=== PATIENT | male | born 1990 | race Caucasian/White ===

== ENCOUNTER 2017-10-27 02:54 | Inpatient (IN) ==
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
[2017-10-27 08:27] LABS: Baso # (Auto) 0.2 th/mm3 (0.0-0.2); Baso % (Auto) 2.1 % (0.0-2.0); Eos # (Auto) 0.1 th/mm3 (0.0-0.4); Eos % (Auto) 0.8 % (0.0-4.0); Hematocrit 41.7 % (39.0-51.0); Hemoglobin 14.4 gm/dL (13.0-17.0); Lymph # (Auto) 2.8 th/mm3 (1.0-4.8); Lymph % (Auto) 33.4 % (9.0-44.0); Mean Corpuscular HGB Conc 34.4 % (32.0-36.0); Mean Corpuscular Hemoglobin 32.1 pg (27.0-34.0); Mean Corpuscular Volume 93.3 fL (80.0-100.0); Mean Platelet Volume 7.1 fL (7.0-11.0); Mono # (Auto) 0.6 th/mm3 (0.0-0.9); Mono % (Auto) 7.2 % (0.0-8.0); Neut # (Auto) 4.7 th/mm3 (1.8-7.7); Neut % (Auto) 56.5 % (16.0-70.0); Platelet Count 305 th/mm3 (150-450); Red Blood Count 4.47 mil/mm3 (4.50-5.90); Red Cell Distribution Width 14.2 % (11.6-17.2); White Blood Count 8.3 th/mm3 (4.0-11.0)
[2017-10-27 08:37] LABS: Amphetamine Screen,Urine Neg (Neg); Barbiturate Screen,Urine Neg (Neg); Cannabinoid Screen,Urine Pos (Neg); Cocaine Screen,Urine Pos (Neg)
[2017-10-27 08:43] LABS: Albumin 4.3 g/dL (3.4-5.0); Anion Gap 8 meq/L (5-15); Aspartate Aminotransferase 20 U/L (15-37); Blood Urea Nitrogen 7 mg/dL (7-18); Calcium 8.4 mg/dL (8.5-10.1); Carbon Dioxide 25.9 meq/L (21.0-32.0); Chloride 110 meq/L (98-107); Glomerular Filtration Rate 82 mL/min (>89); Glucose,Random 80 mg/dL (74-106); Potassium 3.8 meq/L (3.5-5.1); Sodium 144 meq/L (136-145)
[2017-10-27 08:44] LABS: Alanine Aminotransferase 15 U/L (12-78)
[2017-10-27 08:54] LABS: Alkaline Phosphatase 67 U/L (45-117); Thyroid Stimulating Hormone 0.868 uIU/mL (0.358-3.740); Total Protein 7.4 g/dL (6.4-8.2)
[2017-10-27 08:59] LABS: Alcohol 116 mg/dL (0-5)
[2017-10-27 08:59] LABS: Opiate Screen,Urine Neg (Neg)
[2017-10-27] MEDS ORDERED: Aluminum/Magnesium/Simethacone Susp 30 ML UDC PO PRN (12:51)
[2017-10-27] MEDS ORDERED: LORazepam 1 MG Tablet PO PRN (12:55)
--- NOTE | 2017-10-27 13:08 | P.HPPSY ---
Provisional Diagnosis Admission Date: October 27, 2017 02:54 Senath I.: 1. Bipolar disorder, presently depressed 2. Polysubstance abuse Senath II.: Deferred Competence Certification of Person's Competence To Provide Express and Informed Consent I have personally examined Rhys Rodriguez, a person being served at [facility] on, October 27, 2017 1256. Express and informed consent means consent voluntarily given in writing, by a competent person, after sufficient explanation and disclosure of the subject matter involved to enable the person to make a knowing and willful decision without any element of force, fraud, deceit, duress, or other form of constraint or coercion. This person is 18 years of age or older, is not now known to be incompetent to consent to treatment with a guardian advocate, and does not have a health care surrogate or proxy currently making medical treatment decisions. I have found this person to be one of the following: [X] Competent to provide express and informed consent, as defined above, for voluntary admission to this facility and is competent to provide express and informed consent for treatment. He/she has the consistent capacity to make well reasoned, willful, and knowing decisions concerning his or her medical or mental health treatment. The person fully and consistently understands the purpose of the admission for examination/placement and is fully capable of personally exercising all rights assured [place] Incompetent to provide express and informed consent to voluntary admission, and this is incompetent to provide express and informed consent to treatment. The person must be transferred to involuntary status and a petition for a guardian advocate filed with the Circuit Court. [] Refusing to provide express and informed consent to voluntary admission but is competent to provide express and informed consent for treatment. The person must be discharged or transferred to involuntary status. Form shall be completed within 24 hours of a person's arrival at the receiving facility and filed in the clinical record of each person: 1. Admitted on a voluntary basis 2. Permitted to provide express and informed consent to his/her own treatment 3. Allowed to transfer from involuntary to voluntary status 4. Prior to permitting a person to consent to his or her own treatment after having been previously found incompetent to consent to treatment. History of Present Illness Capacity: Has capacity Chief Complaint: Suicidal ideation History of Present Illness: Mr. Rodriguez is a 27-year-old male with a reported history of bipolar disorder versus schizophrenia who presented voluntarily for psychiatric evaluation. He told the ED provider that he was off of his scheduled psychotropic medications, using drugs and hearing voices. Patient's urine toxicology was positive for cocaine and cannabinoids and his alcohol level was 116 on presentation here. Reviewing the electronic medical record, I see no previous psychiatric contact within our system. Patient seen and examined. Chart reviewed. Case discussed with nursing staff. On my examination today, the patient says that he has been off of his psychotropic medications for 6 months. In the setting of medication nonadherence he has been feeling increasingly depressed and has been experiencing audiovisual hallucinations as well as suicidal ideation. He reports that the symptoms became particularly acute recently as he has tried to curtail his substance use. He says that he sees visual hallucinations of shadows and hears auditory hallucinations that are murmuring and occasionally deprecatory. He also endorses some vague paranoia and feels that people are after him. He endorses vague suicidal ideation and says "I do not want to live like this." He says that last night he was ready to end it. He denies any specific suicidal plan at this point and contracts for safety on the inpatient unit. Apparently, the patient initially presented as part of a suicide pact with another male who is presently also in the ED but will not be admitted to the inpatient psychiatric unit at [place]. Affect is somewhat dysphoric. Remainder of the psychiatric ROS is negative. No acute physical complaints except the patient does say that he has right upper dental abscess. Past psychiatric history: The patient reports previous diagnoses as noted above. He reports that he has done well in the past on Seroquel and lithium sometimes in combination with Wellbutrin. He denies a history of seizure or eating disorder. He does report a history of psychiatric admissions in [place] as well as [place]. He reports a history of previous suicide attempts by overdose. Family history: The patient reports that his father was addicted to crack cocaine. He denies a family history of serious mental illness. He reports that 2 of his cousins shot themselves. Chemical dependency history: The patient admits to recent use of cocaine and marijuana. He also drinks about 1/5 a day. He denies any history of DTs or seizures. Social history: The patient is originally from [place]. 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 He has a grade 10 education. Denies any access to guns or firearms. Has a history of DUI. Review of Systems All other systems reviewed negative except as stated in HPI [facility] - History History Provided By: Patient - Medical History Medical History: Medical History (Last Updated 10/27/17 @ 03:09 by Crystal Landa) Bipolar 1 disorder Depression PTSD (post-traumatic stress disorder) - Surgical History Surgical History: Surgical History (Last Updated 10/27/17 @ 03:09 by Crystal Landa) History of tonsillectomy and adenoidectomy - Tobacco History Second Hand Smoke Exposure: Yes Tobacco Use In Past 30 Days: Yes Smoking Status: Current every day smoker Tobacco Type: Cigarettes - Alcohol History How Often Do You Have a Drink Containing Alcohol: 2 to 4 times a month - Substance Use History Substance History: Active Abuse - Substance Use Type Crack/Cocaine Status: Active Route Used: Inhalation Last Used: monthly Reason for Use: Feels Good - Travel History Recent Travel in the [place] Within the Last 8 Weeks: No Recent Travel Out of the Country Within the Last 8 Weeks: No - Immunization History Tetanus Immunization: Unsure Hx Influenza Vaccine This Season: No Quality Measures - Psychiatric History Psychological trauma history: No reported history of trauma. - Patient Strengths Patient's strengths (minimum of 2): In a monitored setting. Verbally fluent. Medications and Allergies Active Medications: Active Medications Acetaminophen (Tylenol) 650 mg PO Q4H PRN PRN Reason: Pain 1-5 or Temp >101F Al Hydrox/Mg Hydrox/Simethicone (Mag-Al Plus Susp Liq) 30 ml PO Q6H PRN PRN Reason: DYSPEPSIA Al Hydroxide/Mg Hydroxide (Milk Of Magnesia Liq) 30 ml PO Q12H PRN PRN Reason: Mild Constipation Hydroxyzine HCl (Atarax) 50 mg PO Q6H PRN PRN Reason: ANXIETY [place] Carbonate ([place]brook Carbonate) 300 mg PO BID BERNIE Melatonin (Melatonin) 5 mg PO HS PRN PRN Reason: INSOMNIA Nicotine (Habitrol 21 Mg Patch.24 Hr) 1 patch T-DERMAL DAILY PRN PRN Reason: Nicotine craving Patch Removal (Remove Old Patch) 1 each T-DERMAL DAILY BERNIE Quetiapine Fumarate (Seroquel) 50 mg PO BID BERNIE Allergies Allergy/AdvReac Type Severity Reaction Status Date / Time No Known Allergies Allergy Verified 10/27/17 03:06 Home Medications Medication Instructions Recorded Confirmed Type No Known Home Medications 10/27/17 10/27/17 History Results - Labs CBC & Chem 7: 10/27/17 07:49 10/27/17 07:49 Labs: Laboratory Results - last 24 hr 10/27/17 10/27/17 10/27/17 07:45 07:49 07:49 WBC 8.3 RBC 4.47 L Hgb 14.4 Hct 41.7 MCV 93.3 MCH 32.1 MCHC 34.4 RDW 14.2 Plt Count 305 MPV 7.1 Neut % (Auto) 56.5 Lymph % (Auto) 33.4 [place] % (Auto) 7.2 Eos % (Auto) 0.8 Baso % (Auto) 2.1 H Neut # (Auto) 4.7 Lymph # (Auto) 2.8 [place] # (Auto) 0.6 Eos # (Auto) 0.1 Baso # (Auto) 0.2 WBC Differential . Differential Comment Auto diff final Sodium 144 Potassium 3.8 Chloride 110 H Carbon Dioxide 25.9 Anion Gap 8 BUN 7 Creatinine 1.09 Estimated GFR 82 L Random Glucose 80 Calcium 8.4 L Total Bilirubin 0.3 AST 20 ALT 15 Alkaline Phosphatase 67 Total Protein 7.4 Albumin 4.3 TSH 0.868 Salicylates Urine Opiates Screen Neg Acetaminophen Less than 2.0 L Ur Barbiturates Screen Neg Ur Amphetamines Screen Neg U Benzodiazepines Scrn Neg Urine Cocaine Screen Pos H U Cannabinoids Screen Pos H Serum Alcohol 116 H 10/27/17 10/27/17 07:49 10:05 WBC RBC Hgb Hct MCV MCH MCHC RDW Plt Count MPV Neut % (Auto) Lymph % (Auto) [place] % (Auto) Eos % (Auto) Baso % (Auto) Neut # (Auto) Lymph # (Auto) [place] # (Auto) Eos # (Auto) Baso # (Auto) WBC Differential Differential Comment Sodium Potassium Chloride Carbon Dioxide Anion Gap BUN Creatinine Estimated GFR Random Glucose Calcium Total Bilirubin AST ALT Alkaline Phosphatase Total Protein Albumin TSH Salicylates 3.1 2.6 L Urine Opiates Screen Acetaminophen Ur Barbiturates Screen Ur Amphetamines Screen U Benzodiazepines Scrn Urine Cocaine Screen U Cannabinoids Screen Serum Alcohol Labs reviewed. Besides toxicological information and mildly decreased GFR, no acute abnormalities noted. Exam Vital signs: Vital Signs 10/27/17 03:06 10/27/17 07:51 Temperature 98.0 F Pulse Rate 77 67 Respiratory Rate 18 18 Blood Pressure 118/61 115/73 Pulse Oximetry 99 97 Intake & Output 10/26/17 10/27/17 10/27/17 18:59 06:59 18:59 Weight 72.575 kg Narrative: Physical examination was completed by ED provider. On my examination today, the patient appears to be in no acute physical distress. No signs of intoxication or withdrawal noted. Labs and vital signs reviewed. Mental Status Examination Appearance: Disheveled Consciousness: Alert Orientation: x4 Motor Activity: Other (No motor abnormalities noted) Speech: Unremarkable Language: Adequate Fund of Knowledge: Adequate Attention and Concentration: Adequate Memory: Unremarkable (Grossly intact on clinical exam) Mood: Other (Dysphoric) Affect: Other (Restricted) Thought Process & Associations: Intact Thought Content: Hallucinations, Delusional Hallucination Type: Auditory (Reported. Does not appear internally stimulated. No reported command auditory hallucinations to hurt self/others.) Delusion Type: Paranoid Suicidal Ideation: Yes Suicidal Plan: No Suicidal Intention: No Homicidal Ideation: No Homicidal Plan: No Homicidal Intention: No Insight: Fair Judgment: Impulsive Assessment and Plan - Assessment (1) Bipolar affective disorder, depressed Code(s): F31.30 - Bipolar disorder, current episode depressed, mild or moderate severity, unspecified Status: Acute (2) Polysubstance abuse Code(s): F19.10 - Other psychoactive substance abuse, uncomplicated Status: Acute - Plan Plan: This is a 27-year-old male with psychiatric history as detailed above who presents voluntarily for psychiatric evaluation. On my examination today, the patient endorses ongoing low mood, hallucinations, paranoia and suicidal ideation. Although it is certainly possible that the patient's symptoms are substance induced or related to secondary gain for snf, given the gravity of his reported symptoms I think it is prudent to admit the patient to the inpatient psychiatric unit for monitoring for any impairments and safety. Admit inpatient. Involuntary status. I will start the patient on Seroquel 50 mg twice daily for mood stabilization as well as lithium 300 mg twice daily for the same purpose. We will plan to check a lithium level after the appropriate interval. Atarax as needed for anxiety. Melatonin as needed for sleep. R/P/A for medications discussed with patient including the metabolic and motor side effects of antipsychotic therapy as well as the risks to kidney and thyroid and need for therapeutic drug monitoring with the lithium. CIWA scale with Ativan for the management of any withdrawal. Thiamine and folate. Seizure precautions. Hospitalist consult for the dental pain, possible abscess. Vitals every shift. Counselor to see. Collateral information. Disposition planning. Justification for Continued Inpatient Stay: See above Discharge Planning: Pending psychiatric stabilization. Request Healthcare Surrogate/Guardian Advocate?: No
--- NOTE | 2017-10-27 14:51 | P.CONIM ---
History of Present Illness Service: Hospitalist Consult date: 10/27/17 Requesting Physician: Jerardo Morel Reason for Consult: Dental abscess Primary Care Provider: No Primary Care Physician History of Present Illness: 27 year old male with history of bipolar disorder vs. schizophrenia presenting voluntarily for psychiatric evaluation. The patient has been off of psychotropic medications for several months off an on and has since been having audiovisual hallucinations, suicidality, and depression. He admits to using drugs; his UDS is positive for marijuana and cocaine. He drinks EtOH daily and smokes about a pack of cigarettes a week. Hospitalist consulted for dental pain. Patient endorses pain around his tooth # 3 (upper right molar). The tooth is broken and sensitive to extremes in temperature. He also complains of pain in the gums around the affected tooth. He states he has symptoms about a week. He doesn't have a dentist. He denies fever, chills, drainage from the area, halitosis, throat pain, or neck stiffness. When asked about any other issues or medical problems he has been diagnosed with he states, "I'm just crazy I guess." Review of Systems All other systems reviewed negative except as stated in HPI PMFSH - History History Provided By: Patient - Medical History Medical History: Medical History (Last Reviewed 10/27/17 @ 14:47 by Susan Ashby MD) Bipolar 1 disorder Depression PTSD (post-traumatic stress disorder) - Surgical History Surgical History: Surgical History (Last Reviewed 10/27/17 @ 14:47 by Susan Ashby MD) History of tonsillectomy and adenoidectomy - Family History Family History: Family History (Last Updated 10/27/17 @ 14:48 by Susan Ashby MD) Father Substance abuse - Social History I have reviewed the patient's Social History: Yes - Tobacco History Second Hand Smoke Exposure: Yes Tobacco Use In Past 30 Days: Yes Smoking Status: Current every day smoker Tobacco Type: Cigarettes - Alcohol History How Often Do You Have a Drink Containing Alcohol: 2 to 4 times a month - Substance Use History Substance History: Active Abuse - Substance Use Type Crack/Cocaine Status: Active Route Used: Inhalation Last Used: monthly Reason for Use: Feels Good - Travel History Recent Travel in the [place] Within the Last 8 Weeks: No Recent Travel Out of the Country Within the Last 8 Weeks: No - Immunization History Tetanus Immunization: Unsure Hx Influenza Vaccine This Season: No Medications and Allergies Active Medications: Active Medications Acetaminophen (Tylenol) 650 mg PO Q4H PRN PRN Reason: Pain 1-5 or Temp >101F Al Hydrox/Mg Hydrox/Simethicone (Mag-Al Plus Susp Liq) 30 ml PO Q6H PRN PRN Reason: DYSPEPSIA Al Hydroxide/Mg Hydroxide (Milk Of Magnesia Liq) 30 ml PO Q12H PRN PRN Reason: Mild Constipation Flumazenil ([place]aze[place] Inj) 0.2 mg IV.PUSH Q1M PRN PRN Reason: OVERSEDATION Folic Acid (Folic Acid) 1 mg PO DAILY BERNIE Stop: 11/02/17 08:59 Hydroxyzine HCl (Atarax) 50 mg PO Q6H PRN PRN Reason: ANXIETY [place] Carbonate ([place] Carbonate) 300 mg PO BID BERNIE Lorazepam (Ativan) 1 mg PO Q4H PRN PRN Reason: for CIWA 8-10 Lorazepam (Ativan) 2 mg PO Q2H PRN PRN Reason: for CIWA 11-14 Lorazepam (Ativan Inj) 2 mg IV.PUSH Q2H PRN PRN Reason: for CIWA 11-14 Lorazepam (Ativan Inj) 2 mg IV.PUSH Q1H PRN PRN Reason: for CIWA 15-20 Lorazepam (Ativan Inj) 2 mg IV.PUSH Q15M PRN PRN Reason: for CIWA > 20 Lorazepam (Ativan Inj) 1 mg IV.PUSH Q4H PRN PRN Reason: for CIWA 8-10 Melatonin (Melatonin) 5 mg PO HS PRN PRN Reason: INSOMNIA Multivitamins/Minerals (Theragran-M) 1 tab PO DAILY [facility] Stop: 11/02/17 08:59 Nicotine (Habitrol 21 Mg Patch.24 Hr) 1 patch T-DERMAL DAILY PRN PRN Reason: Nicotine craving Patch Removal (Remove Old Patch) 1 each T-DERMAL DAILY [facility] Quetiapine Fumarate (Seroquel) 50 mg PO BID [facility] Thiamine HCl (Vitamin B1) 100 mg PO DAILY [facility] Allergies Allergy/AdvReac Type Severity Reaction Status Date / Time No Known Allergies Allergy Verified 10/27/17 03:06 Home Medications Medication Instructions Recorded Confirmed Type No Known Home Medications 10/27/17 10/27/17 History Exam Vital signs: Vital Signs 10/27/17 03:06 10/27/17 07:51 Temperature 98.0 F Pulse Rate 77 67 Respiratory Rate 18 18 Blood Pressure 118/61 115/73 Pulse Oximetry 99 97 Intake & Output 10/26/17 10/27/17 10/27/17 18:59 06:59 18:59 Weight 72.575 kg Narrative: GENERAL: WN, WD male ambulating the floor in [facility]. SKIN: Warm and dry. HEENT: Partially broken tooth #3 with obvious cavity. No visible abscess or drainage. Surrounding gum is erythematous and tender. NECK: Supple no tender LAD or neck stiffness. HEART: RRR no m/r/g. LUNGS: CTAB without wheezes or crackles. NEURO: Awake and alert. Results - Labs CBC & Chem 7: 10/27/17 07:49 10/27/17 07:49 Labs: Laboratory Results - last 24 hr 10/27/17 10/27/17 10/27/17 07:45 07:49 07:49 WBC 8.3 RBC 4.47 L Hgb 14.4 Hct 41.7 MCV 93.3 MCH 32.1 MCHC 34.4 RDW 14.2 Plt Count 305 MPV 7.1 Neut % (Auto) 56.5 Lymph % (Auto) 33.4 [place] % (Auto) 7.2 Eos % (Auto) 0.8 Baso % (Auto) 2.1 H Neut # (Auto) 4.7 Lymph # (Auto) 2.8 [place] # (Auto) 0.6 Eos # (Auto) 0.1 Baso # (Auto) 0.2 WBC Differential . Differential Comment Auto diff final Sodium 144 Potassium 3.8 Chloride 110 H Carbon Dioxide 25.9 Anion Gap 8 BUN 7 Creatinine 1.09 Estimated GFR 82 L Random Glucose 80 Calcium 8.4 L Total Bilirubin 0.3 AST 20 ALT 15 Alkaline Phosphatase 67 Total Protein 7.4 Albumin 4.3 TSH 0.868 Salicylates Urine Opiates Screen Neg Acetaminophen Less than 2.0 L Ur Barbiturates Screen Neg Ur Amphetamines Screen Neg U Benzodiazepines Scrn Neg Urine Cocaine Screen Pos H U Cannabinoids Screen Pos H Serum Alcohol 116 H 10/27/17 10/27/17 07:49 10:05 WBC RBC Hgb Hct MCV MCH MCHC RDW Plt Count MPV Neut % (Auto) Lymph % (Auto) [place] % (Auto) Eos % (Auto) Baso % (Auto) Neut # (Auto) Lymph # (Auto) [place] # (Auto) Eos # (Auto) Baso # (Auto) WBC Differential Differential Comment Sodium Potassium Chloride Carbon Dioxide Anion Gap BUN Creatinine Estimated GFR Random Glucose Calcium Total Bilirubin AST ALT Alkaline Phosphatase Total Protein Albumin TSH Salicylates 3.1 2.6 L Urine Opiates Screen Acetaminophen Ur Barbiturates Screen Ur Amphetamines Screen U Benzodiazepines Scrn Urine Cocaine Screen U Cannabinoids Screen Serum Alcohol Assessment and Plan - Assessment (1) Dental cavity Code(s): K02.9 - Dental caries, unspecified Status: Acute (2) Gingivitis Code(s): K05.10 - Chronic gingivitis, plaque induced Status: Acute (3) Broken tooth Code(s): S02.5XXA - Fracture of tooth (traumatic), initial encounter for closed fracture Status: Acute - Plan 27 year old male with h/o bipolar disorder vs. schizophrenia admitted to psych voluntarily for audiovisual hallucinations, depression, and suicidal ideations. Hospitalist consulted as patient complained of dental pain. 1. Tooth #3 fracture and cavity with gingivitis - No leukocytosis or fever - Recommend 7 day course of Augmentin - Chlorhexidine rinse BID - Tylenol #3 PRN - Advised patient to f/u with dentist upon discharge 2. Schizophrenia - Management per psych 3. EtOH abuse - CIWA protocol - Thiamine and folate - Seizure precautions DVT prophylaxis: ambulatory Thank you for this consultation. Will sign off at this time. Please reconsult if needed. Discussed Condition With: Patient
[2017-10-27] MEDS ORDERED: Acetaminophen/Codeine 300/30 MG Tablet PO PRN (15:28)
[2017-10-27] MEDS: Amoxicillin/Clavulanate 875/125 MG Tablet PO SCH ×2 (16:27→21:17)
[2017-10-27] MEDS ORDERED: Chlorhexidine 0.12% Oral Kit 15 ML UDC OROPHARYNG SCH (20:00)
[2017-10-27] MEDS: QUEtiapine 25 MG Tablet PO SCH (21:17)
[2017-10-27] MEDS: Chlorhexidine Gluconate 0.12% Liq 15 ML UDC OROPHARYNG SCH (22:26)
[2017-10-28] MEDS: Acetaminophen 325 MG Tablet PO PRN (04:38)
[2017-10-28] MEDS: QUEtiapine 25 MG Tablet PO SCH ×2 (10:18→20:51)
[2017-10-28] MEDS: Chlorhexidine Gluconate 0.12% Liq 15 ML UDC OROPHARYNG SCH ×2 (10:18→22:19)
[2017-10-28] MEDS: Multivitamin/Minerals Therapeutic Tablet PO SCH (10:18)
[2017-10-28] MEDS: Folic Acid 1 MG Tablet PO SCH (10:18)
[2017-10-28] MEDS: Amoxicillin/Clavulanate 875/125 MG Tablet PO SCH ×2 (10:18→20:50)
[2017-10-28 10:32] LABS: Calcium 8.6 mg/dL (8.5-10.1); Carbon Dioxide 26.6 meq/L (21.0-32.0); Potassium 4.3 meq/L (3.5-5.1)
[2017-10-28 10:35] LABS: Chol/HDL Ratio 2.75 Ratio
[2017-10-28 13:00] LABS: Hemoglobin A1c 5.6 % (4.3-6.0)
--- NOTE | 2017-10-28 13:35 | P.PNPSY ---
Subjective Chief Complaint: Suicidal ideation Remarks: Patient seen and examined with nurse. Chart reviewed. Case discussed with nursing staff. Patient scoring minimally on CIWA scale. He has no signs of withdrawal on my exam today. Complaining of tooth pain. Patient already seen by the hospitalist for this. Case discussed with counselor. On my examination today, the patient presents as a somewhat manipulative historian. Some degree of symptom exaggeration is suspected. He claims to hear auditory hallucinations telling him to hurt nonspecific people and himself, although he does not appear at all internally stimulated. Affect is somewhat dysphoric. He denies any actual urge to hurt himself or others, saying that he is merely hearing these voices. Denies side effects from medications. Besides the tooth pain, no physical complaints. Vital Signs Temp Pulse Resp BP Pulse Ox 10/28/17 11:17 97.8 F 62 17 109/60 96 10/28/17 06:00 97.5 F L 70 17 122/83 95 10/27/17 18:00 97.7 F 71 16 104/60 10/27/17 15:05 97.1 F L 62 18 119/58 L Intake and Output 10/27/17 10/28/17 10/28/17 22:59 06:59 14:59 Other: Weight 72.8 kg Weight On Admission 72.8 kg Laboratory Results - last 24 hr 10/28/17 10/28/17 09:10 09:10 Sodium 141 Potassium 4.3 Chloride 105 Carbon Dioxide 26.6 Anion Gap 9 BUN 13 Creatinine 1.20 Estimated GFR 73 L Random Glucose 79 Hemoglobin A1c 5.6 Calcium 8.6 Triglycerides 114 Cholesterol 110 L LDL Cholesterol, Calc 47 HDL Cholesterol 40.0 Cholesterol/HDL Ratio 2.75 Labs reviewed. Decreased GFR noted. EKG reviewed. Review of Systems All other systems reviewed negative except as stated in HPI Mental Status Examination Appearance: Disheveled Consciousness: Alert Orientation: x4 Motor Activity: Other (No abnormal motor movements noted) Speech: Unremarkable Language: Adequate Fund of Knowledge: Adequate Attention and Concentration: Adequate Memory: Unremarkable (Grossly intact on clinical exam) Mood: Other (Remains dysphoric) Affect: Other (Restricted) Thought Process & Associations: Intact Thought Content: Hallucinations Hallucination Type: Auditory, Command, Other (Does not appear internally stimulated) Delusion Type: None Suicidal Ideation: No Suicidal Plan: No Suicidal Intention: No Homicidal Ideation: No Homicidal Plan: No Homicidal Intention: No Insight: Fair Judgment: Impulsive Assessment and Plan - Assessment (1) Bipolar affective disorder, depressed Code(s): F31.30 - Bipolar disorder, current episode depressed, mild or moderate severity, unspecified Status: Acute (2) Polysubstance abuse Code(s): F19.10 - Other psychoactive substance abuse, uncomplicated Status: Acute - Plan Plan: Titrate Seroquel to 100 mg twice daily for mood stabilization. Continue lithium as ordered. Plan to check a lithium level later in the week. Trend GFR as lithium therapy may need to be adjusted or discontinued if the patient's renal function becomes too impaired. I will add topical anesthetic for patient' s complaints of tooth pain. Hospitalist input noted and appreciated. Continue to monitor on the inpatient unit. Continue other medications and care as ordered. Justification for Continued Inpatient Stay: Medication changes. Risk for decompensation in less restrictive environment. Discharge Planning: Pending psychiatric stabilization. Anticipate discharge by the end of the week. Request Healthcare Surrogate/Guardian Advocate?: No
--- NOTE | 2017-10-28 19:03 | ECG ---
Date Performed: 10/27/2017 Time Performed: 16:37:18 PTAGE: 27 years EKG: Sinus rhythm WITH FREQUENT SUPRAVENTRICULAR PREMATURE COMPLEXES POSSIBLE RIGHT VENTRICULAR CONDUCTION DELAY ABNOR MAL RHYTHM ECG NO PREVIOUS TRACING DOCTOR: Chastity Santiago Interpretating Date/Time 10/28/2017 19:02:50
[2017-10-29 07:33] LABS: Potassium 4.2 meq/L (3.5-5.1)
[2017-10-29 07:37] LABS: Carbon Dioxide 28.8 meq/L (21.0-32.0)
[2017-10-29] MEDS: Multivitamin/Minerals Therapeutic Tablet PO SCH (09:05)
[2017-10-29] MEDS: Folic Acid 1 MG Tablet PO SCH (09:05)
[2017-10-29] MEDS: Amoxicillin/Clavulanate 875/125 MG Tablet PO SCH ×2 (09:05→21:03)
[2017-10-29] MEDS: QUEtiapine 25 MG Tablet PO SCH (09:06)
[2017-10-29] MEDS: Chlorhexidine Gluconate 0.12% Liq 15 ML UDC OROPHARYNG SCH ×2 (09:53→22:36)
--- NOTE | 2017-10-29 15:21 | P.PNPSY ---
Subjective Chief Complaint: Suicidal ideation Remarks: Patient seen and examined with nurse. Chart reviewed. Case discussed with nursing staff. Patient noted to be more cooperative today. Case discussed in treatment team. On my examination today, the patient says that the medications are starting to help with his voices. He says that these are no more than "murmurs" now. He does complain of ongoing anxiety and says that his mood remains "temperamental and snappy." He denies side effects from medications besides some mild tiredness. We discuss replacing the bulk of the Seroquel dose at night as we are titrating this medication to manage this side effect. Patient is also requesting something additional for anxiety and we discuss among other options the off label use of gabapentin. No physical complaints. Patient notes the dental pain is improved. Vital Signs Temp Pulse Resp BP Pulse Ox 10/29/17 06:00 97.4 F L 53 L 18 113/59 L 93 L Laboratory Results - last 24 hr 10/29/17 05:55 Sodium 142 Potassium 4.2 Chloride 106 Carbon Dioxide 28.8 Anion Gap 7 BUN 16 Creatinine 1.16 Estimated GFR 76 L Random Glucose 83 Calcium 9.0 Labs reviewed. Renal function stable. Review of Systems All other systems reviewed negative except as stated in HPI Mental Status Examination Appearance: Other (Fair) Consciousness: Alert Orientation: x4 Motor Activity: Other (No motor abnormalities noted) Speech: Unremarkable Language: Adequate Fund of Knowledge: Adequate Attention and Concentration: Adequate Memory: Unremarkable (Grossly intact on clinical exam) Mood: Other ("Temperamental, snappy") Affect: Other (Less dysphoric today) Thought Process & Associations: Intact Thought Content: Hallucinations Hallucination Type: Auditory (Murmurs) Delusion Type: None Suicidal Ideation: No Suicidal Plan: No Suicidal Intention: No Homicidal Ideation: No Homicidal Plan: No Homicidal Intention: No Insight: Fair Judgment: Impulsive Assessment and Plan - Assessment (1) Bipolar affective disorder, depressed Code(s): F31.30 - Bipolar disorder, current episode depressed, mild or moderate severity, unspecified Status: Acute (2) Polysubstance abuse Code(s): F19.10 - Other psychoactive substance abuse, uncomplicated Status: Acute - Plan Plan: Titrate Seroquel to 100 mg in the morning and 200 mg at bedtime for further mood stabilization and for reported psychotic symptoms. Continue lithium as ordered and plan to check a lithium and BMP on morning. Continue to monitor on the inpatient unit. Continue other medications and care as ordered. Justification for Continued Inpatient Stay: Medication changes. Risk for decompensation in less restrictive environment. Discharge Planning: Pending psychiatric stabilization. Request Healthcare Surrogate/Guardian Advocate?: No
--- NOTE | 2017-10-29 15:34 | P.TTN ---
- Patient Problems Problems: 1. Discharge planning 2. Medication compliance 3. Knowledge deficit 4. Lack of coping skills - Progress Toward Goals Provider Present: Dr. Xochitl Morel (History of Substance abuse and presented homeless ) Nurse Input: [place]: at times bizarre , reported to have acted out, has some thoughts of suicide, but overall compliant Psychiatric Counselors Present: Peggy Canales LCSW (shares with counselor today he has a girlfriend in [place] and he would like to go there, if his phone is with him he would like to call her- no cell phone came in, then he states he will be fine and work it out if he can just go and get medications once he is being discharged- he plans on finding his way to [place] and locate his cell phone ) Group Spec/RT/OT/TRINIDAD Present: VIVI Staples (minimal engaging ) - Documentation Teaching Recipient: Patient
[2017-10-29] MEDS: Gabapentin 100 MG Capsule PO SCH (21:01)
[2017-10-29] MEDS: Melatonin 5 MG Tablet PO PRN (21:05)
[2017-10-29] MEDS: Acetaminophen 325 MG Tablet PO PRN (21:31)
[2017-10-30] MEDS: Amoxicillin/Clavulanate 875/125 MG Tablet PO SCH ×2 (08:22→21:06)
[2017-10-30] MEDS: Multivitamin/Minerals Therapeutic Tablet PO SCH (08:23)
[2017-10-30] MEDS: Gabapentin 100 MG Capsule PO SCH ×3 (08:23→21:06)
[2017-10-30] MEDS: QUEtiapine 100 MG Tablet PO SCH (08:23)
[2017-10-30] MEDS: Folic Acid 1 MG Tablet PO SCH (08:23)
[2017-10-30] MEDS: Chlorhexidine Gluconate 0.12% Liq 15 ML UDC OROPHARYNG SCH ×2 (08:45→21:09)
--- NOTE | 2017-10-30 12:57 | P.PNPSY ---
Subjective Chief Complaint: Suicidal ideation Remarks: Patient seen and examined with nurse. Chart reviewed. Case discussed with nursing staff. No behavioral issues noted overnight. On my exam, patient says that he feels like he is improving. Auditory hallucinations continued to decrease. Mood is improving. He denies SI or HI. Continues to complain of some anxiety and we discuss titrating his gabapentin. Denies side effects from medications. No physical complaints. Vital Signs Temp Pulse Resp BP Pulse Ox 10/30/17 06:07 97.5 F L 79 15 104/56 L 96 10/30/17 06:00 97.5 F L 79 15 104/56 L 96 Intake and Output 10/30/17 10/30/17 10/30/17 06:59 14:59 22:59 Intake Total 720 / 720 Balance 720 / 720 Intake: Oral 720 / 720 Labs reviewed. No new labs. Review of Systems All other systems reviewed negative except as stated in HPI Mental Status Examination Appearance: Other (Fair) Consciousness: Alert Orientation: x4 Motor Activity: Other (No abnormal motor movements noted) Speech: Unremarkable Language: Adequate Fund of Knowledge: Adequate Attention and Concentration: Adequate Memory: Unremarkable (Grossly intact on clinical exam) Mood: Appropriate Affect: Blunt Thought Process & Associations: Intact Thought Content: Hallucinations Hallucination Type: Auditory (Minimal) Delusion Type: None Suicidal Ideation: No Suicidal Plan: No Suicidal Intention: No Homicidal Ideation: No Homicidal Plan: No Homicidal Intention: No Insight: Fair Judgment: Impulsive Assessment and Plan - Assessment (1) Bipolar affective disorder, depressed Code(s): F31.30 - Bipolar disorder, current episode depressed, mild or moderate severity, unspecified Status: Acute (2) Polysubstance abuse Code(s): F19.10 - Other psychoactive substance abuse, uncomplicated Status: Acute - Plan Plan: Titrate gabapentin to 200 mg 3 times daily. Continue lithium as ordered and plan to check a lithium level tomorrow. Continue Seroquel as ordered. Continue to monitor on the inpatient unit. Continue other medications and care as ordered. Justification for Continued Inpatient Stay: Medication changes. Risk for decompensation in less restrictive environment. Discharge Planning: Pending psychiatric stabilization. Request Healthcare Surrogate/Guardian Advocate?: No
[2017-10-31 06:14] VITALS: O2SAT 95
[2017-10-31 06:52] LABS: Anion Gap 8 meq/L (5-15); Blood Urea Nitrogen 20 mg/dL (7-18); Calcium 8.8 mg/dL (8.5-10.1); Chloride 106 meq/L (98-107); Glomerular Filtration Rate Greater Than 89 mL/min (>89); Glucose,Random 84 mg/dL (74-106); Potassium 4.1 meq/L (3.5-5.1); Sodium 140 meq/L (136-145)
[2017-10-31] MEDS: Folic Acid 1 MG Tablet PO SCH (08:10)
[2017-10-31] MEDS: Chlorhexidine Gluconate 0.12% Liq 15 ML UDC OROPHARYNG SCH ×2 (08:11→20:00)
[2017-10-31] MEDS: Gabapentin 100 MG Capsule PO SCH ×3 (08:11→21:11)
[2017-10-31] MEDS: Multivitamin/Minerals Therapeutic Tablet PO SCH (08:12)
[2017-10-31] MEDS: Amoxicillin/Clavulanate 875/125 MG Tablet PO SCH ×2 (08:12→21:09)
[2017-10-31] MEDS: QUEtiapine 100 MG Tablet PO SCH (08:12)
--- NOTE | 2017-10-31 13:55 | P.PNPSY ---
Subjective Chief Complaint: Suicidal ideation Remarks: Patient seen and examined with nurse. Chart reviewed. Case discussed with nursing staff. No behavioral issues noted overnight. Case discussed with counselor who is working with patient on discharge planning. On my examination today, the patient reports some mild residual auditory hallucinations of murmuring and visual hallucinations of shadows. He does say that these usually remit with medication treatment. He denies any suicidal or homicidal ideation. Mood is stabilizing nicely. He is hopeful for discharge soon. No side effects from medications. We discuss medication changes and also patient's lithium level. Patient would like to titrate his Seroquel little bit more at night and is agreeable to lithium titration to bring the level within the therapeutic range. No acute physical complaints. Vital Signs Temp Pulse Resp BP Pulse Ox 10/31/17 07:21 97.7 F 56 L 16 101/51 L 95 10/31/17 06:00 97.7 F 56 L 16 101/51 L 95 10/30/17 20:00 98.4 F 55 L 16 114/64 98 Laboratory Results - last 24 hr 10/31/17 10/31/17 05:45 05:45 Sodium 140 Potassium 4.1 Chloride 106 Carbon Dioxide 26.0 Anion Gap 8 BUN 20 H Creatinine 0.95 Estimated GFR Greater than 89 Random Glucose 84 Calcium 8.8 [place] 0.2 L Labs reviewed. [place] level subtherapeutic. GFR within normal limits. Review of Systems All other systems reviewed negative except as stated in HPI Mental Status Examination Appearance: Appropriate Consciousness: Alert Orientation: x4 Motor Activity: Other (No motoric abnormalities noted) Speech: Unremarkable Language: Adequate Fund of Knowledge: Adequate Attention and Concentration: Adequate Memory: Unremarkable (Grossly intact on clinical exam) Mood: Appropriate Affect: Appropriate Thought Process & Associations: Intact Thought Content: Hallucinations Hallucination Type: Auditory (Noncommand, murmuring), Visual (Mild) Delusion Type: None Suicidal Ideation: No Suicidal Plan: No Suicidal Intention: No Homicidal Ideation: No Homicidal Plan: No Homicidal Intention: No Mental Status Exam Remarks: Insight and judgment are fair Assessment and Plan - Assessment (1) Bipolar affective disorder, depressed Code(s): F31.30 - Bipolar disorder, current episode depressed, mild or moderate severity, unspecified Status: Acute (2) Polysubstance abuse Code(s): F19.10 - Other psychoactive substance abuse, uncomplicated Status: Acute - Plan Plan: Titrate Seroquel to 100 mg in the morning and 300 mg at bedtime to target residual reported psychotic symptoms. Titrate lithium to 300 mg 3 times daily to try to bring the level within the therapeutic range. Plan to obtain follow- up lithium level, probably on an outpatient basis. Continue to monitor on the inpatient unit. Continue other medications and care as ordered. Justification for Continued Inpatient Stay: Medication changes Discharge Planning: Possible discharge tomorrow, Saturday Request Healthcare Surrogate/Guardian Advocate?: No
[2017-10-31 19:24] VITALS: RESP 18; TEMP 97.3
[2017-10-31] MEDS: Melatonin 5 MG Tablet PO PRN (21:12)
[2017-11-01 06:21] VITALS: BP 115/67; PULSE 70
[2017-11-01] MEDS: QUEtiapine 100 MG Tablet PO SCH (08:16)
[2017-11-01] MEDS: Folic Acid 1 MG Tablet PO SCH (08:16)
[2017-11-01] MEDS: Gabapentin 100 MG Capsule PO SCH (08:16)
[2017-11-01] MEDS: Multivitamin/Minerals Therapeutic Tablet PO SCH (08:16)
--- NOTE | 2017-11-01 09:07 | P.DSPSY ---
Psychiatry Discharge Summary Inpatient Psychiatric care?: Yes Advance Directives: No Mental Health Advance Directive: No Health Care Proxy: No - Admission Admission Date: October 27, 2017 12:50 - Admission Diagnosis (1) Bipolar affective disorder, depressed Code(s): F31.30 - Bipolar disorder, current episode depressed, mild or moderate severity, unspecified (2) Polysubstance abuse Code(s): F19.10 - Other psychoactive substance abuse, uncomplicated Brief History: Mr. Rodriguez is a 27-year-old male with a reported history of bipolar disorder versus schizophrenia who presented voluntarily for psychiatric evaluation. He told the ED provider that he was off of his scheduled psychotropic medications, using drugs and hearing voices. Patient's urine toxicology was positive for cocaine and cannabinoids and his alcohol level was 116 on presentation here. Reviewing the electronic medical record, I see no previous psychiatric contact within our system. Patient seen and examined. Chart reviewed. Case discussed with nursing staff. On my examination today, the patient says that he has been off of his psychotropic medications for 6 months. In the setting of medication nonadherence he has been feeling increasingly depressed and has been experiencing audiovisual hallucinations as well as suicidal ideation. He reports that the symptoms became particularly acute recently as he has tried to curtail his substance use. He says that he sees visual hallucinations of shadows and hears auditory hallucinations that are murmuring and occasionally deprecatory. He also endorses some vague paranoia and feels that people are after him. He endorses vague suicidal ideation and says "I do not want to live like this." He says that last night he was ready to end it. He denies any specific suicidal plan at this point and contracts for safety on the inpatient unit. Apparently, the patient initially presented as part of a suicide pact with another male who is presently also in the ED but will not be admitted to the inpatient psychiatric unit at [facility]. Affect is somewhat dysphoric. Remainder of the psychiatric ROS is negative. No acute physical complaints except the patient does say that he has right upper dental abscess. Past psychiatric history: The patient reports previous diagnoses as noted above. He reports that he has done well in the past on Seroquel and lithium sometimes in combination with Wellbutrin. He denies a history of seizure or eating disorder. He does report a history of psychiatric admissions in [place] as well as [place]. He reports a history of previous suicide attempts by overdose. Family history: The patient reports that his father was addicted to crack cocaine. He denies a family history of serious mental illness. He reports that 2 of his cousins shot themselves. Chemical dependency history: The patient admits to recent use of cocaine and marijuana. He also drinks about 1/5 a day. He denies any history of DTs or seizures. Social history: The patient is originally from [place]. 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 He has a grade 10 education. Denies any access to guns or firearms. Has a history of DUI. Tobacco Use In Past 30 Days: Yes How Often Do You Have a Drink Containing Alcohol: Monthly or less Hospital Course: Patient was admitted to a locked, inpatient psychiatric unit. A general medical consultation was obtained. Appropriate precautions were in place throughout patient's hospital stay. Patient was seen and examined on the unit by psychiatry and also visited by counselor. Psychotropic medications were adjusted. Patient tolerated medication changes well without side effects. Patient had improvement in presenting psychiatric symptomatology during the course of his hospital stay. There was no evidence of any suicidality or homicidality on the inpatient unit. There was no evidence of self-care deficit. Patient was noted to be entitled by staff. On the day of discharge: Patient seen and examined with nurse and counselor. Chart reviewed. Case discussed with nursing staff. Patient was apparently found trying to pick the lock the 2600 unit and 2500 unit. He was thereafter transferred to the 2700 unit for closer monitoring. Otherwise, the patient presented no behavioral problem. Case discussed in treatment team. On my examination today , the patient tells me that he tried to pick the lock because he was "bored." I am inclined to take him at his word in this regard. He is requesting discharge from the inpatient psychiatric unit today. He denies any suicidal or homicidal ideation, intent or plan. I can elicit no depressive or hypomanic/ manic symptoms. He denies any audiovisual hallucinations. I can elicit no delusional material. He denies any side effects from medications. I have educated the patient on the need for follow-up lithium level. No physical complaints. Suicide and violence risk assessment on day of discharge both suggest lower imminent risk from mental illness and the patient's level of function is adequate for outpatient care. Patient will be discharged today with follow-up as arranged by counselor. Patient is also to follow up with primary care and with dentistry. I have counseled the patient to abstain from substances of abuse. I have counseled the patient regarding warning signs for need to return to the psychiatric emergency room as part of a general safety plan. With the benefit of observation on the inpatient unit, some degree of malingering for group home is felt to be possible in the present case. - Discharge Discharge Date: 11/01/17 - Discharge Diagnosis (1) Bipolar disorder, in full remission, most recent episode depressed Diagnosis: Principal Code(s): F31.76 - Bipolar disorder, in full remission, most recent episode depressed Status: Acute (2) Polysubstance abuse Diagnosis: Secondary Code(s): F19.10 - Other psychoactive substance abuse, uncomplicated Status: Chronic Discharge Disposition: See counselor's notes - Discharge Instructions Discharge Diet: Regular Diet Activities You Can Perform: Weight Bearing As Tolerat - Discharge Time <= 30 minutes Mental Status Examination Appearance: Appropriate Consciousness: Alert Orientation: x4 Motor Activity: Normal gait, Other (No abnormal motor movements noted) Speech: Unremarkable Language: Adequate Fund of Knowledge: Adequate Attention and Concentration: Adequate Memory: Unremarkable (Grossly intact on clinical exam) Mood: Appropriate Affect: Appropriate Thought Process & Associations: Intact, Logical, Goal directed, Linear Thought Content: Appropriate Hallucination Type: None Delusion Type: None Suicidal Ideation: No Suicidal Plan: No Suicidal Intention: No Homicidal Ideation: No Homicidal Plan: No Homicidal Intention: No Insight: Fair Judgment: Impulsive (Likely chronic condition) Discharge/Advance Care Plan - Results Vital Signs: Last Vital Signs Temp 97.3 F L 11/01/17 06:21 Pulse 70 11/01/17 06:21 Resp 18 10/31/17 19:23 BP 115/67 11/01/17 06:21 Pulse Ox 95 10/31/17 19:23 Lab Results: Laboratory Results Hemoglobin A1c 5.6 % (4.3-6.0) 10/28/17 09:10 Triglycerides 114 mg/dL (42-150) 10/28/17 09:10 Cholesterol 110 mg/dL (120-200) L 10/28/17 09:10 LDL Cholesterol, Calc 47 mg/dL (0-99) 10/28/17 09:10 HDL Cholesterol 40.0 mg/dL (40.0-60.0) 10/28/17 09:10 TSH 0.868 uIU/mL (0.358-3.740) 10/27/17 07:49 [place]reth 0.2 meq/L (0.5-1.5) L 10/31/17 05:45 Summary of Procedures: None done Pending Results: None - Medications Number of antipsychotic medications at discharge: 1 - Discharge Care Plan Goals to Promote Your Health: * To prevent worsening of your condition and complications * To maintain your health at the optimal level Directions to Meet Your Goals: Take your medications as prescribed Follow your dietary instruction Follow activity as directed Keep your appointments as scheduled Take your immunizations and boosters as scheduled If your symptoms worsen call your PCP, if no PCP go to Urgent Care Center or Emergency Room For 03/09 questions related to your inpatient stay or results of tests pending at discharge, please contact Dr. Jerardo Morel MD at [phone] Smoking is Dangerous to Your Health. Avoid second hand smoking
== END 2017-11-01 09:40 | disposition home or self-care (01) ==
LOC: NEPE 02:54 → NEDA 12:50 → H260 14:26 → H270 10-31 20:21
PROVIDERS: ADMIT Psychiatry & Neurology Psychiatry; ATTEND Psychiatry & Neurology Psychiatry